=== PATIENT | female | born 1960 | race Caucasian/White ===

== ENCOUNTER → 2018-10-26 16:47 | Outpatient (CLI) | payer OTHER, SELFPAY ==
[2018-10-26 17:39] LABS: Add Manual Diff / Slide Review NO; Basophils Absolute Auto 100 /uL (0-100); Basophils Percent Auto 0.9 % (0-2); Eosinophils Absolute Auto 400 /uL (0-450); Eosinophils Percent Auto 5.8 % (2-4); Hematocrit 38.5 % (36-46); Lymphocytes Absolute Auto 2300 /uL (1100-4500); Lymphocytes Percent Auto 34.6 % (25-40); Mean Corpuscular HGB Conc 33.7 % (30-36); Mean Corpuscular Hemoglobin 33.3 PG (26-34); Mean Corpuscular Volume 98.6 fL (80-100); Monocytes Absolute Auto 500 /uL (0-900); Monocytes Percent Auto 7.5 % (3-14); Neutrophils Absolute Auto 3500 /uL (1500-7000); Neutrophils Percent Auto 51.2 % (50-75); Platelet Count 216 X10^3/uL (150-400); Red Blood Cell Count 3.91 X10^6/uL (4.0-5.2); Red Cell Distribution Width 12.3 % (11.6-14.8); White Blood Cell Count 6.8 X10^3/uL (4.5-11.0)
[2018-10-26 17:57] LABS: BUN Creatinine Ratio 21.3 (6-22); Blood Urea Nitrogen 17 mg/dL (7-17); Calcium 9.4 mg/dL (8.4-10.2); Carbon Dioxide 31 mmol/L (22-32); Chloride 102 mmol/L (98-107); Estimated Glomerular Filt Rate > 60.0 mL/min (>60); Glucose 82 mg/dL (70-100); HEMOLYSIS < 15 (0-50); Sodium 140 mmol/L (137-145)
[2018-10-26 17:59] LABS: Erythrocyte Sedimentation Rate 6 MM/HR (0-20)
== END ==
PROVIDERS: PCP Family Medicine; Visit Provider Physician Assistant
DX: R21 Rash and other nonspecific skin eruption (principal)
CPT/HCPCS: 36415; 80048; 85025; 85651

== ENCOUNTER → 2023-02-05 15:51 | Outpatient (CLI) | payer BC, SELFPAY ==
--- NOTE | 2023-02-05 | DI.MG.S_ITS ---
BILATERAL DIGITAL SCREENING MAMMOGRAM 3D/2D WITH CAD: 02/05/2023 CLINICAL: Routine screening. Comparison is made to exams dated: 10/28/2019 mammogram, 07/28/2017 mammogram, and 03/07/2015 mammogram - [facility]. Both breasts are heterogeneously dense, which may obscure small masses (category c / 51-75% glandular tissue). Current study was also evaluated with a Computer Aided Detection (CAD) system. There are benign calcifications in both breasts. There also is a biopsy clip in the right breast. No significant masses, calcifications, or other findings are seen in either breast. There has been no significant interval change. IMPRESSION: BENIGN There is no mammographic evidence of malignancy. A 1 year screening mammogram is recommended. Based on the Tyrer Cuzick model (a risk assessment model) the patient's lifetime risk is 9.5% and her 10 year risk is 4.1%. According to the ACR, ACS, and NCCN guidelines, an annual breast MRI exam along with mammogram is recommended if the patient's lifetime risk is 20% or greater. This exam was interpreted at Station ID: [id number]. NOTE: For mammograms, a report in lay terms will be sent to the patient. Approximately 15% of breast malignancies will not be visualized mammographically. In the management of a palpable breast mass, a negative mammogram must not discourage biopsy of a clinically suspicious lesion. Electronically Signed By: Ciara guillen/rohit:02/06/2023 16:12:45 copy to: ILDEFONSO OTERO letter sent: Normal Exam ACR BI-RADS Category 2: Benign Finding(s) 3342F
== END ==
PROVIDERS: PCP Family Medicine; Referring Provider Family Medicine; Visit Provider Family Medicine
DX: Z12.31 Encounter for screening mammogram for malignant neoplasm of breast (principal)
CPT/HCPCS: 77063; 77067

== ENCOUNTER 2023-10-24 22:00 | Emergency (ER) | payer BC, SELFPAY ==
[2023-10-24 22:20] VITALS: BP 127/56; PULSE 52; RESP 16; TEMP 36.9; O2SAT 100; BMI 19.7
--- NOTE | 2023-10-24 22:47 | DI.RAD.S_ITS ---
PROCEDURE: XR FOOT LT MIN 3V INDICATIONS: pain/swelling TECHNIQUE: 3 views of the foot were acquired. COMPARISON: None. FINDINGS: Bones: No fractures or dislocations. No suspicious bony lesions. Prior bunionectomy valgus correction of the 1st MTP. 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 Soft tissues: No tibiotalar joint effusion. Achilles tendon appears normal. IMPRESSION: No acute bony abnormality. Dictated by: Yanna Servin M.D. on 10/25/2023 at 0:29 Approved by: Yanna Servin M.D. on 10/25/2023 at 0:30
[2023-10-25] VITALS: BP 121/58; PULSE 56; RESP 20; O2SAT 100
--- NOTE | 2023-10-25 03:22 | ED_ITS ---
HPI - Extremity Problem General Chief complaint: Extremity Problem,Nontraumatic Stated complaint: foot pain,swelling, vomiting Time Seen by Provider: 10/25/23 03:03 Source: patient and family Mode of arrival: Wheelchair History of Present Illness HPI Narrative: 63-year-old female had left lateral foot pain with some erythema, no injury or direct blow or bite or sting sensation, onset last night while she was sitting at her patio in bare feet. No other persons sitting in the area had similar symptoms. There were no hives. She had pain that migrated to her heel and also the medial aspect of her foot then to the distal MTPs region of her foot, the redness seemed to fade away in the resolve. No itching. No streaking. She had not take Benadryl or steroid or anti-inflammatory pain medications. She did try to apply heat, no ice application tried. She had no persisting pain right ankle. Related Data Home Medications Medication Instructions Recorded Confirmed OMEPRAZOLE 20 mg PO QDAY ##0 06/23/12 Previous Rx's Medication Instructions Recorded triamcinolone acetonide 0.1 % 1 applictn topical BID #28.4 grams 10/26/18 topical cream Allergies Allergy/AdvReac Type Severity Reaction Status Date / Time No Known Drug Allergies Allergy Verified 10/24/23 22:27 Review of Systems Review of Systems Narrative: As per HPI Patient History Social History Smoking Status: Never smoker Smoking Status: Never smoker Exam Narrative Exam Narrative: GENERAL: Well-developed patient, in mild distress. HEAD: Atraumatic. Normocephalic. EYES: Pupils equal round and reactive. Extraocular motions intact. No scleral icterus. No injection or drainage. ENT: Nose without bleeding, purulent drainage. Throat without erythema, tonsillar hypertrophy or exudate. Airway patent. NECK: Trachea midline. Non tender CARDIOVASCULAR: Regular rate and rhythm without murmurs, gallops, or rubs. RESPIRATORY: Clear to auscultation. Breath sounds equal bilaterally. No wheezes, rales, or rhonchi. GASTROINTESTINAL: Abdomen soft, non-tender, nondistended. EXTREMITIES: No edema or joint tenderness. Well-healed great toe 1st MTP bunion surgery. No redness or swelling, no punctum, no ulcers, unremarkable exam, no tenderness. No crepitance. No hives, no erythema, no ecchymoses or abrasions. BACK: Nontender without deformity or crepitance. No flank tenderness. NEURO: AOx3. SKIN: No rash or erythema of visible areas Initial Vital Signs Initial Vital Signs: Vital Signs Temperature 98.5 F 10/24/23 22:20 Pulse Rate 52 L 10/24/23 22:20 Respiratory Rate 16 10/24/23 22:20 Blood Pressure 127/56 L 10/24/23 22:20 Pulse Oximetry 100 10/24/23 22:20 Oxygen Delivery Method Room Air 10/24/23 22:20 Course Orders Ordered: Discontinued Medications Ondansetron HCl (Ondansetron 4 Mg Odt) 4 mg SL NOW PRN PRN Reason: Nausea And Vomiting Vital Signs Vital signs: Vital Signs - 8 hr 10/24/23 22:20 10/25/23 00:00 Temperature 98.5 F Pulse Rate 52 L 56 L Respiratory Rate 16 20 Blood Pressure 127/56 L 121/58 L Pulse Oximetry 100 100 Oxygen Delivery Method Room Air Room Air MDM - Extremity (Nontraumatic) Imaging Data Extremity x-ray #1: Radiologist's Impression: [place] [id number] XRay Report Signed Patient: Maria Isabel Islas MR#: [id number] : 1960 Acct:[id number] Age/Sex: 63 / F Date of Service: 10/24/23 Loc: ED Accession Number: [id number] Procedure: XR foot LT min 3V Ordering Provider: Mert Allison MD PROCEDURE: XR FOOT LT MIN 3V INDICATIONS: pain/swelling TECHNIQUE: 3 views of the foot were acquired. COMPARISON: None. FINDINGS: Bones: No fractures or dislocations. No suspicious bony lesions. Prior bunionectomy valgus correction of the 1st MTP. 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 Soft tissues: No tibiotalar joint effusion. Achilles tendon appears normal. IMPRESSION: No acute bony abnormality. Dictated by: Yanna Servin M.D. on 10/25/2023 at 0:29 Approved by: aYnna Servin M.D. on 10/25/2023 at 0:30 [facility] Narrative Medical decision making narrative: 63-year-old female with left foot pain and erythema by history, migrated to her heel on the same side, then medial aspect, then MTPs area, no sting or bite recalled, redness seemed to fade, heat application tried, no oral medications. Symptoms seemed to resolve. X-ray from triage negative for any bony injuries to that affected foot. History sounds most consistent with arthropod envenomation with reactive erythema, symptoms seemed to have been resolved. Symptoms not seem like an allergic reaction, strain pattern, blunt injury, contusion, neuropathy, plantar fasciitis, gout, arthritis, cellulitis, contact dermatitis. Patient/family agree with assessment, no further treatment for now unless symptoms persist/worsen. Can take [id number] Tylenol and or Motrin if needed for any residual discomfort. Recheck if symptoms persist in the next couple of days. Return to this/nearest emergency department for any change worsening symptoms or any concerns prior Discharge Plan Departure Patient Disposition: Home Clinical Impression: Foot pain Activity Restrictions/Additional Instructions: Left foot pain onset while sitting barefoot home patio area, no others with similar symptoms, no bite or sting seen, no offending agent seen, there seemed to be some redness and pain to the lateral aspect of the left foot, then pain to the heel area, then the medial inside area of the foot, in the distal toes region of the foot. Migratory pattern. Local heat tried, no other treatments. Symptoms seemed to resolve however. Symptoms seem most consistent with an arthropod envenomation of some kind, unclear since nothing was actually seen if this might have been more of a spider bite or scorpion or syncope or some other arthropod. No hives or itching or allergic reaction symptoms. Symptoms not consistent with plantar fasciitis, cellulitis of the skin, contact dermatitis, arthritis, gouty flare, typical allergic reaction. Symptoms seemed to be resolved. X-ray done through triage negative for bony injuries. Take Tylenol and or Motrin as needed for any residual discomfort. Recheck if any residual discomfort by Friday with your regular provider. Return to this/nearest emergency department for any change worsening symptoms or any concerns prior Prescriptions: No Action triamcinolone acetonide 0.1 % cream 1 applictn TOP BID Qty: 28.4 0RF OMEPRAZOLE 20 mg PO QDAY Qty: 0 Referrals: Jose Rollins MD [Primary Care Provider] - Stand Alone Forms: Patient Portal/API
== END 2023-10-25 03:35 | disposition home or self-care (01) ==
PROVIDERS: Emergency Provider Emergency Medicine; PCP Family Medicine
DX: M79.672 Pain in left foot (principal)
CPT/HCPCS: 73630; 99281; 99282